=== PATIENT | male | born 1975 | race African-American/Black ===

== ENCOUNTER 2022-07-03 13:18 | Emergency (ER) | payer MEDICAID, SELFPAY ==
[2022-07-03 13:20] VITALS: BP 137/83; PULSE 76; RESP 15; TEMP 36.4; O2SAT 100; BMI 31.8
[2022-07-03 13:21] VITALS: BP 137/83; PULSE 76; RESP 15; TEMP 36.4; O2SAT 100
--- NOTE | 2022-07-03 14:02 | EX.ED.DYSGE1 ---
HPI History of Present Illness Chief Complaint: Abscess Informant: patient Onset/Context/Timing Onset: Days Context: Gradual Onset Timing: Continuous Current Severity: Mild Maximum Severity: Mild Narrative Narrative: 47-year-old diabetic male ceiza pilonidal cyst or abscess for the last several days. He denies any other complaints. No fever or chills. Said his blood sugar was running 110 yesterday. He has had a prior abscess drained. Prior similar symptoms: Yes Recent Illness/Hospitalization: No PFSH PFSH Home Medications amlodipine 07/03/22 [History Last Taken Unknown] atorvastatin 07/03/22 [History Last Taken Unknown] carvedilol 07/03/22 [History Last Taken Unknown] cephalexin 500 mg capsule 500 mg PO Q6 #40 caps 07/03/22 [Rx Last Taken Unknown] lisinopril 07/03/22 [History Last Taken Unknown] Allergy/AdvReac Type Severity Reaction Status Date / Time No Known Allergies Allergy Verified 07/03/22 13:18 Social History Smoking Status: Current every day smoker tobacco type: cigars ROS ROS ED ROS Narrative Denies recent illness. Review of Systems ROS Unobtainable: Denies due to encephalopathy Constitutional Constitutional ED: Denies chills Eyes Eyes: Denies blurry vision ENT ENT ED: Denies ear pain Cardiovascular Cardiovascular: Denies chest pain Respiratory/Chest Respiratory/Chest: Denies cough Gastrointestinal Gastrointestinal: Denies abdominal pain Genitourinary Genitourinary ED: Denies dysuria Musculoskeletal Musculoskeletal: Denies arthralgias Integumentary Reports abscess Neurologic Neurologic: Denies headache(s) Psychiatric Psychiatric: Denies anxiety Endocrine Endocrinology: Denies cold intolerance Hematologic/Lymphatic Hematologic/Lymphatic: Reports none Allergic/Immunologic Allergic/Immunologic ED: Denies mouth swelling or tongue swelling EXAM Physical Exam Narrative Exam Narrative: Well-appearing middle-age male. Vital signs stable afebrile. HEENT exam unremarkable. Lungs clear. Heart regular rhythm no murmur. Abdomen soft nontender. Moving all 4 extremities. Normal motor strength. The base of his lower back tailbone at the cleft of his buttocks proximally there is an area of tenderness consistent with either a pilonidal cyst or abscess. No significant cellulitis. Mild tenderness. Otherwise exam unremarkable. Const Vital Signs: 07/03/22 13:20 07/03/22 13:21 Temperature 97.5 F L 97.5 F L Temperature Source Temporal Temporal Pulse Rate 76 76 Respiratory Rate 15 15 Blood Pressure 137/83 H 137/83 H Blood Pressure Mean 101 101 Pulse Ox 100 100 Oxygen Delivery Method Room Air Room Air Positive well nourished, well developed and obese; Negative for cachectic, contractures or unkempt General Appearance ED: well developed and NAD; Negative for unkempt, cachectic, contractures, cyanotic or diaphoretic Nutritional Appearance: obese; Negative for cachectic HEENT Reports moist mucous membranes; Denies dry mucous membranes Negative for trauma Mouth ED: No dry mucous membranes Mouth: No dry mucous membranes Eyes PERRL and EOMs intact bilaterally General Eye ED: Negative for pale conjunctiva or scleral icterus Neck no lymphadenopathy, supple and no JVD General: Negative for tenderness Lymph Lymphatic: Negative for other Chest Wall inspection of chest normal and palpation of chest normal Chest: Negative for other Resp normal respiratory effort and clear to auscultation bilaterally Effort and Inspection: Negative for retractions Auscultation: Negative for rales or rhonchi Cardio regular rate, regular rhythm, S1 normal heart sound, S2 normal heart sound and no murmurs Palpation: Negative for palpable S3 Rate: Negative for bradycardia Rhythm: Negative for abnormal rhythm GI normal to inspection, nondistended, normoactive bowel sounds, non-tender and non-distended Inspection: Negative for abdominal distention Auscultation: normoactive bowel sounds Palpation: soft; Negative for tender Back/Spine no CVA tenderness Back/Spine Narrative: Tenderness over the lower back region consistent with a pilonidal cyst or abscess. General Back: Negative for CVA tenderness Cervical Spine: Negative for cervical spine tenderness Thoracic Spine / Upper Back: Negative for thoracic spinal tenderness Extremity normal to inspection General Extremety ED: Negative for edema or tenderness General Extremity: Negative for edema Neuro oriented x3 Sensorium / Orientation: alert; Negative for orientation impaired Motor Exam: strength 5/5 throughout Psych mental status grossly normal Appearance: Negative for unkempt Attitude: No agitated Mood & Affect: Negative for depressed Skin no rashes or lesions noted and no wounds General Skin Exam: Negative for elasticity normal Lesions: No lesion noted Rashes: No rashes noted Trauma: Negative for abrasion Wounds: Negative for wounds noted MDM MDM MDM Narrative Medical decision making narrative: 47-year-old diabetic male with possibly a pilonidal cyst or abscess. Area be cleaned. Let applied. Local injected with lidocaine. Incised and drained. Incision and drainage chronic dental abscess. Pus expressed. Given Keflex here. Placed on Keflex for times a day for 10 days. Follow-up with a general surgeon for possible formal incision and drainage if needed. Tylenol Motrin for pain. Warm soaks. Return if worse. Procedures Other Procedures Procedure(s): Pilonidal abscess incision and drainage. Topical let to the wound. Local lidocaine. Cleaned with iodine. May need incision on the proximal right buttock near the right buttock crease and also an incision on the left buttock crease. Mostly infected indurated tissue. I was not able to express pus from the injection site. Patient tolerated procedure well. The incisions I made really did not get into any type of pus pockets I did not have him. He was instructed on wound care and follow-up. Discharge Plan Triage Chief Complaint: Abscess ED Provider: Joey Puentes Dx/Rx/DC Orders Clinical Impression: Pilonidal abscess Instructions: ED Abscess Incision And Drainage Prescriptions: New cephalexin 500 mg capsule 500 mg PO Q6 Qty: 40 0RF No Action amlodipine atorvastatin carvedilol lisinopril Primary Care Provider: Care Physician,No Primary Referrals: Nona Montemayor MD [Med Staff - Active Staff] - As soon as possible Care Physician,No Primary [Primary Care Provider] - Activity Restrictions/Additional Instructions: Incision and drainage of pilonidal abscess. Warm soaks twice a day for the next 3 days. Tylenol and Motrin for pain. The antibiotic Keflex was sent to your pharmacy in [facility] 1 pill 4 times a day for 10 days. Follow-up with a general surgeon if this improves you may not need anything done if it does not resolve you may need a formal incision and resection of that area. Return here if feeling worse, developing a fever or the area is getting larger Disposition Disposition: Home, Self Care
[2022-07-03] MEDS: Lidocaine/Epi/Tetracaine 50 ML 1 APPLIC TOPICAL (14:14)
[2022-07-03] MEDS: Cephalexin 250 MG Capsule 500 MG PO (15:35)
[2022-07-03] MEDS: Lidocaine 1% (20 ml mdv) 20 ML Vial 10 ML INFILT (15:37)
[2022-07-03 15:38] VITALS: BP 127/78; PULSE 84; RESP 19
== END 2022-07-03 15:38 | disposition home or self-care (01) ==
PROVIDERS: Emergency Provider Emergency Medicine; Visit Provider Emergency Medicine
DX: L05.01 Pilonidal cyst with abscess (principal); E11.9 Type 2 diabetes mellitus without complications; F17.290 Nicotine dependence, other tobacco product, uncomplicated; E66.9 Obesity, unspecified; Z79.899 Other long term (current) drug therapy
CPT/HCPCS: 10080; 99283; J7030